=== PATIENT | female | born 1980 | race Caucasian/White ===

== ENCOUNTER 2024-04-27 13:13 | Outpatient (CLI) | payer OTHER, SELFPAY ==
--- NOTE | ~2024-04-27 | US_ITS ---
US pelvic complete w TV Ordering provider: Marilee Lenz MD History: . abn uterine bleeding . Comparison: None. Technique: Transabdominal and endovaginal ultrasound of the pelvis (Doppler ultrasound interrogation techniques used as needed for this exam.) FINDINGS: CERVIX: Normal. UTERUS: Measures 8.4x 4.8x 5.4 cm in length which is within normal limits and is anteverted. Complex echogenicity areas seen in the anterior wall of the uterus suggestive of a fibroid. Follow-up advise d. ENDOMETRIUM: Normal in thickness measuring 10 mm. No endometrial masses, cysts or fluid. CUL DE SAC: Minimal free fluid. RIGHT OVARY: Normal in size measuring 3x 1.5x 2.4 cm. Normal echotexture. Doppler vascular flow prese nt. LEFT OVARY: Normal in size measuring 4.6x 4.7x 3.9 cm. Normal echotexture. Doppler vascular flow pres ent. ADNEXA: Complex left ovarian lesion is seen measuring 3.3 x 2.8 x 3.1 cm. This may be a solid mass ve rsus complex cyst. Follow-up advised. IMPRESSION: Anterior uterine wall fibroid. Heterogenous left ovarian lesion which may indicate a mass versus comp jabier cyst. Close Follow-up advised. Otherwise, normal pelvic ultrasound. Reviewed, dictated and finalized at location A. IMPRESSION: Anterior uterine wall fibroid. Heterogenous left ovarian lesion which may indic ate a mass versus complex cyst. Close Follow-up advised. Otherwise, normal pelv ic ultrasound.
== END 2024-04-27 13:14 ==
LOC: MICIMG 13:14
PROVIDERS: PCP Obstetrics & Gynecology; Visit Provider Obstetrics & Gynecology
DX: N93.9 Abnormal uterine and vaginal bleeding, unspecified (principal); D25.9 Leiomyoma of uterus, unspecified
CPT/HCPCS: 76830; 76856

== ENCOUNTER 2024-07-10 08:16 | Outpatient (CLI) | payer OTHER, SELFPAY ==
--- NOTE | ~2024-07-10 | US_ITS ---
EXAMINATION: US pelvic complete w TV DATE: 07/10/2024 08:49 INDICATION: Ovarian cyst. TECHNIQUE: Multiple transabdominal and transvaginal sonographic images of the pelvis were obtained. COMPARISON: Ultrasound pelvis 04/27/2024 FINDINGS: TRANSABDOMINAL ULTRASOUND: The uterus measures 10.8 x 4.9 x 6.1 cm. There is physiologic free fluid in the pelvis. TRANSVAGINAL ULTRASOUND: The endometrial complex measures 6 mm in thickness. There is a stable 5 mm cyst in the endometrial co mplex, likely not clinically significant. There is a 3.2 cm intramural fibroid. The right ovary measu res 3.4 x 1.7 x 2.9 cm. The left ovary measures 3.4 x 3.3 x 2.7 cm. There is a 2.2 cm dominant follic le in left ovary. There is normal vascular flow in the ovaries. IMPRESSION: 1. Normal ovaries. 2. Uterine fibroid. Reviewed, dictated and finalized at location B.
== END 2024-07-10 08:17 | disposition home or self-care (01) ==
LOC: MICIMG 08:18
PROVIDERS: PCP Obstetrics & Gynecology; Visit Provider Obstetrics & Gynecology
DX: N83.209 Unspecified ovarian cyst, unspecified side (principal); D25.9 Leiomyoma of uterus, unspecified
CPT/HCPCS: 76830; 76856